=== PATIENT | female | born 1945 | race Caucasian/White ===

== ENCOUNTER 2022-12-16 08:37 | Emergency (ER) | payer MEDICARE, OTHER ==
[2022-12-16 08:49] VITALS: O2SAT 97
--- NOTE | 2022-12-16 08:56 | ED Physician Documentation ---
History of Present Illness - Stated complaint Stated Complaint: GLF, LT SHOULDER INJ - Chief complaint Chief Complaint: General - History obtained from History obtained from: Patient, Family - Additonal information Additional information: Relatively healthy 77-year-old woman developed symptomatic COVID recently and is on day 2 of paxlovid. This morning she got out of bed and suddenly feeling like she needed to vomit and was making her way to the bathroom and had a brief episode of syncope and landed on the left shoulder. The left shoulder is painful but declines anything for pain now. Denies chest pain, trouble breathing, headache, neck pain, or other injuries. PD PAST MEDICAL HISTORY - Past Medical History Past Medical History: Yes Endocrine/Autoimmune: HyPOthyroidism - Present Medications Home Medications: Ambulatory Orders Medication Instructions Recorded Confirmed Levothyroxine [Synthroid] 100 mcg PO QDAC 12/16/22 12/16/22 - Allergies Allergies/Adverse Reactions: Allergies Allergy/AdvReac Type Severity Reaction Status Date / Time No Known Drug Allergies Allergy Verified 12/16/22 08:45 - Social History Does the pt smoke?: No Smoking Status: Never smoker PD ED PE NORMAL - Vitals Vital signs reviewed: Yes - General General: Alert and oriented X 3, No acute distress - HEENT HEENT: PERRL (Mild anisocoria with right being larger than the left), EOMI - Neck Neck: Supple, no meningeal sign, No bony TTP - Cardiac Cardiac: RRR, No murmur - Respiratory Respiratory: No respiratory distress, Clear bilaterally - Abdomen Abdomen: Normal bowel sounds, Soft, Non tender - Back Back: No CVA TTP, No spinal TTP - Derm Derm: Normal color, Warm and dry - Extremities Extremities: Other (Tender over the glenohumeral joint and supraclavicular area without proximal humeral or clavicular tenderness on the left. Other major joints were ranged and palpated without tenderness or limited range of motion.) - Neuro Neuro: Alert and oriented X 3 Eye Opening: Spontaneous Motor: Obeys Commands Verbal: Oriented GCS Score: 15 - Psych Psych: Normal mood, Normal affect Results - Vitals Vitals: Vital Signs - 24 hr 12/16/22 12/16/22 08:42 09:52 Temperature 37.2 C Heart Rate 98 90 Respiratory 20 16 Rate Blood Pressure 219/164 H 151/86 H O2 Saturation 97 97 Oxygen O2 Source Room air - EKG (time done) 0904 EKG releavant findings:: EKG personally interpreted by author of this note. Relevant findings are: Rate: Rate (enter#) (87) Rhythm: NSR, LAE [place]: Normal Intervals: Normal MA QRS: Low voltage Ischemia: Normal ST segments - Labs Labs: Laboratory Tests 12/16/22 12/16/22 09:15 09:15 WBC 4.4 L RBC 4.48 Hgb 13.6 Hct 41.6 MCV 92.9 MCH 30.4 MCHC 32.7 RDW 13.7 Plt Count 159 MPV 9.8 Neut # (Auto) 3.6 Lymph # (Auto) 0.5 L Dane # (Auto) 0.3 Eos # (Auto) 0.0 Baso # (Auto) 0.0 Absolute Nucleated RBC 0.00 Nucleated RBC % 0.0 Sodium 135 Potassium 3.7 Chloride 104 Carbon Dioxide 25 Anion Gap 6.0 BUN 9 Creatinine 0.7 Estimated GFR (MDRD) 81 L Glucose 126 H Calcium 9.3 Total Bilirubin 0.4 AST 22 ALT 22 Alkaline Phosphatase 74 Total Protein 7.3 Albumin 4.2 Globulin 3.1 Albumin/Globulin Ratio 1.4 - Rads (name of study) L shoulder XR Relevant Findings:: Final report received, EMP independent interpretation of test PD Medical Decision Making - ED course ED course: 77-year-old woman with COVID had a syncopal episode when she got out of bed too quickly while nauseous. She did not end up throwing up but she does have a distal clavicular fracture. Discussed with her that that should heal well with conservative measures but orthopedic follow-up was advised. No concerning findings on CBC, CMP, or EKG. Departure - Departure Disposition: 01 Home, Self Care Clinical Impression: Closed left clavicular fracture Qualifiers: Encounter type: initial encounter Clavicle location: lateral end Fracture alignment: nondisplaced Qualified Code(s): S42.035A - Nondisplaced fracture of lateral end of left clavicle, initial encounter for closed fracture Syncope Qualifiers: Syncope type: vasovagal syncope Qualified Code(s): R55 - Syncope and collapse Condition: Good Record reviewed to determine appropriate education?: Yes Instructions: ED Syncope Vasovagal, ED Fx Clavicle Follow-Up: Orthopedic Care [Provider Group] Comments: The fact that she passed out when getting up too quickly and associated with nausea is likely vasovagal syncope. You should follow-up with your primary care physician for further evaluation and treatment and certainly return if you develop new or worsening symptoms. You should also follow-up with the orthopedist for second opinion on the clavicular fracture, the numbers on this form. Call tomorrow for an appointment. Generally though nondisplaced clavicle fractures like this are treated conservatively with a sling for comfort and gentle range of motion exercises to prevent a frozen shoulder. Forms: PCP List
--- NOTE | 2022-12-16 09:28 | XRAY Report ---
PROCEDURE: Shoulder 3 View LT INDICATIONS: shoulder inj TECHNIQUE: 3 views of the shoulder were acquired. COMPARISON: None. FINDINGS: Bones: On one image, there is believed to be a mildly displaced fracture of the distal clavicle. No dislocation can be seen. No suspicious bony lesions. Visualized ribs appear intact. Degenerative changes are seen, which are worst involving the acromioclavicular joint. There is a remote calcified intra-articular bodies seen along the superior aspect of the glenohumeral joint. Soft tissues: No suspicious soft tissue calcifications. The visualized lungs are within normal limi ts. IMPRESSION: Suspicion for distal clavicle fracture. If clinically appropriate, please consider a follow-up CT for further evaluation. Underlying degenerative changes are seen. Reviewed by: Vinnie Santana MD on 12/16/2022 8:27 AM [facility] Approved by: Vinnie Santana MD on 12/16/2022 8:27 AM [facility] Station ID: [id number]
[2022-12-16 09:31] LABS: BASOPHILS % (AUTO) 0.5 %; HCT - HEMATOCRIT 41.6 % (37.0-47.0); HGB - HEMOGLOBIN 13.6 g/dL (12.0-16.0); LYMPHOCYTES # (AUTO) 0.5 10^3/uL (1.5-3.5); LYMPHOCYTES % (AUTO) 11.1 %; MEAN CORPUSCULAR HEMOGLOBIN 30.4 pg (27.0-31.0); MEAN CORPUSCULAR HGB CONC 32.7 g/dL (32.0-36.0); MEAN CORPUSCULAR VOLUME 92.9 fL (81.0-99.0); MEAN PLATELET VOLUME 9.8 fL (7.9-10.8); MONOCYTES # (AUTO) 0.3 10^3/uL (0.0-1.0); MONOCYTES % (AUTO) 6.6 %; NEUTROPHILS # (AUTO) 3.6 10^3/uL (1.5-6.6); NEUTROPHILS % (AUTO) 81.8 %; PLT - PLATELET COUNT 159 10^3/uL (130-450); RED BLOOD COUNT 4.48 10^6/uL (4.20-5.40); RED CELL DISTRIBUTION WIDTH 13.7 % (12.0-15.0); WHITE BLOOD COUNT 4.4 x10^3/uL (4.8-10.8)
[2022-12-16 09:45] LABS: ALBUMIN 4.2 g/dL (3.2-5.5); ALBUMIN/GLOBULIN RATIO 1.4 (1.0-2.2); BILIRUBIN,TOTAL 0.4 mg/dL (0.2-1.0); CALCIUM 9.3 mg/dL (8.5-10.3); CREATININE 0.7 mg/dL (0.6-1.3); POTASSIUM 3.7 mmol/L (3.5-4.5); TOTAL PROTEIN 7.3 g/dL (6.4-8.9)
[2022-12-16 09:54] VITALS: BP 151/86
== END 2022-12-16 10:13 | disposition home or self-care (01) ==
LOC: ED 08:37
DX: S42.035A Nondisplaced fracture of lateral end of left clavicle, initial encounter for closed fracture (principal); W18.30XA Fall on same level, unspecified, initial encounter; Y92.009 Unspecified place in unspecified non-institutional (private) residence as the place of occurrence of the external cause
CPT/HCPCS: 36415; 80053; 85025; 93005; 99283; 99284

== ENCOUNTER 2022-12-25 08:00 | Outpatient (CLI) | payer MEDICARE ==
--- NOTE | 2022-12-25 16:03 | XRAY Report ---
PROCEDURE: Clavicle LT INDICATIONS: LEFT CLAVICLE FRACTURE TECHNIQUE: 2 views of the clavicle were acquired. COMPARISON: Left shoulder x-ray series 12/16/2022 FINDINGS: Bones: Mildly displaced distal left clavicle fracture is without significant change compared to prio r exam. Soft tissues: No suspicious soft tissue calcifications or masses. IMPRESSION: Stable distal left clavicle fracture. Reviewed by: Rachana Aguiar MD, PhD on 12/25/2022 4:02 PM PDT Approved by: Rachana Aguiar MD, PhD on 12/25/2022 4:02 PM PDT Station ID: [id number]
== END 2022-12-25 23:59 | disposition home or self-care (01) ==
LOC: DI.WOS 08:00
PROVIDERS: ATTEND Physician Assistant Surgical
DX: S42.032A Displaced fracture of lateral end of left clavicle, initial encounter for closed fracture (principal)

== ENCOUNTER 2023-01-15 08:00 | Outpatient (CLI) | payer MEDICARE, OTHER ==
--- NOTE | 2023-01-15 19:24 | XRAY Report ---
PROCEDURE: Clavicle LT INDICATIONS: LEFT CLAVICLE FRACTURE TECHNIQUE: 2 views of the clavicle were acquired. COMPARISON: None FINDINGS: Bones: Transverse fracture through the distal clavicle with inferior angulation of distal fracture f ragment Soft tissues: No suspicious soft tissue calcifications or masses. IMPRESSION: Distal clavicular angulated fracture without change Reviewed by: Jorje Bell MD on 01/15/2023 6:23 PM [place] Approved by: Jorje Bell MD on 01/15/2023 6:23 PM [place] Station ID: [id number]
== END 2023-01-15 23:59 | disposition home or self-care (01) ==
LOC: DI.WOS 08:00
PROVIDERS: ATTEND Physician Assistant Surgical
DX: S42.032D Displaced fracture of lateral end of left clavicle, subsequent encounter for fracture with routine healing (principal)

== ENCOUNTER 2023-02-12 08:00 | Outpatient (CLI) | payer MEDICARE, OTHER ==
--- NOTE | 2023-02-12 14:03 | XRAY Report ---
PROCEDURE: Clavicle LT INDICATIONS: LEFT CLAVICLE FRACTURE TECHNIQUE: 2 views of the clavicle were acquired. COMPARISON: Clavicle x-ray 01/15/2023 FINDINGS: Bones: Mildly angulated fracture of the distal left clavicle. Stable alignment. Minimal less promine nt appearance of fracture lucency. Soft tissues: No suspicious soft tissue calcifications or masses. IMPRESSION: Stable alignment of distal left clavicular fracture with decrease prominence of distal clavicular fra cture lucency. Reviewed by: Felecia Briggs MD on 02/12/2023 2:02 PM PST Approved by: Felecia Briggs MD on 02/12/2023 2:02 PM PST Station ID: [id number]
== END 2023-02-12 23:59 | disposition home or self-care (01) ==
LOC: DI.WOS 08:00
PROVIDERS: ATTEND Physician Assistant Surgical
DX: S42.032D Displaced fracture of lateral end of left clavicle, subsequent encounter for fracture with routine healing (principal)

== ENCOUNTER 2023-04-11 08:00 | Outpatient (CLI) | payer MEDICARE, OTHER ==
--- NOTE | 2023-04-11 15:13 | XRAY Report ---
PROCEDURE: Clavicle LT INDICATIONS: LEFT CLAVICLE FRACTURE TECHNIQUE: 2 views of the clavicle were acquired. COMPARISON: X-ray clavicle dated 02/12/2023, 01/15/2023. FINDINGS: Bones: Distal left clavicular fracture lucency is again identified appearing similar to prior study. No new fracture or subluxation seen. Soft tissues: No suspicious soft tissue calcifications or masses. IMPRESSION: No apparent change in lucency possibly representing distal left clavicular fracture. Reviewed by: Mir Velez MD on 04/11/2023 3:12 PM PST Approved by: Mir Velez MD on 04/11/2023 3:12 PM PST Station ID: [id number]
== END 2023-04-11 23:59 | disposition home or self-care (01) ==
LOC: DI.WOS 08:00
PROVIDERS: ATTEND Physician Assistant Surgical
DX: R93.7 Abnormal findings on diagnostic imaging of other parts of musculoskeletal system (principal)